=== PATIENT | female | born 1945 | race Caucasian/White ===

== ENCOUNTER 2023-04-07 09:07 | Inpatient (IN) | payer MEDICARE, OTHER ==
[2023-04-07] MEDS ORDERED: Sodium Chloride 0.9% 10 ML Syringe FLUSH PRN (09:12)
[2023-04-07 09:24] LABS: BASOPHILS PERCENT AUTO 0.5 % (0.2-1.2); EOSINOPHILS PERCENT AUTO 0.5 % (0.0-4.0); HEMATOCRIT 41.5 % (33.0-47.0); HEMOGLOBIN 14.2 g/dL (12.0-16.0); IMMATURE GRAN ABSOLUTE AUTO 0.02 x10^3/uL (0.00-0.07); LYMPHOCYTES ABSOLUTE AUTO 1.3 x10^3/uL (1.0-4.8); LYMPHOCYTES PERCENT AUTO 15.1 % (25.0-50.0); MEAN CORPUSCULAR HEMOGLOBIN 30.2 pg (26.0-32.0); MEAN CORPUSCULAR HGB CONC 34.2 g/dL (32.0-36.0); MEAN CORPUSCULAR VOLUME 88.3 fL (78.0-93.0); MONOCYTES ABSOLUTE AUTO 0.6 x10^3/uL (0.0-0.8); MONOCYTES PERCENT AUTO 6.8 % (2.0-11.0); NEUTROPHILS ABSOLUTE AUTO 6.6 x10^3/uL (1.8-7.7); NEUTROPHILS PERCENT AUTO 76.9 % (50.0-80.0); PLATELET COUNT,PLT 270 x10^3/uL (130-400); WHITE BLOOD CELL COUNT,WBC 8.5 x10^3/uL (4.0-10.0)
[2023-04-07 09:38] LABS: PROTHROMBIN TIME 10.7 SEC (9.5-12.2); PTT,PARTIAL THROMBOPLSTIN TIME 24.5 SEC (23.6-33.6)
[2023-04-07 09:43] LABS: A/G RATIO 1.48; ALANINE AMINOTRANSFERASE,ALT 29 U/L (14-59); ALKALINE PHOSPHATASE 85 U/L (46-116); ASPARTATE AMNIOTRANSFERASE,AST 16 U/L (15-37); BILIRUBIN TOTAL 0.3 mg/dL (0.2-1.0); BLOOD UREA NITROGEN,BUN 14 mg/dL (7-18); CALCIUM 8.9 mg/dL (8.5-10.1); CARBON DIOXIDE,CO2 23 mmol/L (21-32); CHLORIDE,CL 104 mmol/L (98-107); CREATININE 0.9 mg/dL (0.55-1.02); GLUCOSE RANDOM 119 mg/dL (70-99); PROTEIN TOTAL,TP 6.7 g/dL (6.4-8.2); SODIUM,NA 139 mmol/L (136-145)
[2023-04-07 09:44] LABS: ESTIMATED GFR 67 mL/min (>=60)
[2023-04-07] MEDS ORDERED: Iopamidol 755 Mg/ML 100 ML Bottle IVPUSH ONE (10:36)
[2023-04-07] MEDS ORDERED: Morphine 2 MG/ML SYRINGE IVPUSH ONE (11:33)
[2023-04-07] MEDS ORDERED: Ondansetron 4 MG Tab.DIS PO PRN (12:51)
[2023-04-07] MEDS ORDERED: Acetaminophen 325 MG Tab PO PRN (12:51)
[2023-04-07] MEDS ORDERED: DEXAMETHASONE 0.5 MG/5 ML PO SCH (13:00)
[2023-04-07] MEDS ORDERED: Zolpidem 5 MG Tab PO PRN (13:21)
[2023-04-07] MEDS ORDERED: Morphine 2 MG/ML SYRINGE IVPUSH PRN (13:27)
[2023-04-07] MEDS ORDERED: Gadoteridol 279.3 MG/ML 20 ML SDV ONE (14:20)
[2023-04-07] MEDS: oxyCODONE 5 MG Tab PO PRN (17:30)
[2023-04-07] MEDS: Sodium Chloride 0.9% 1,000 ML IV SCH (17:45)
[2023-04-07] MEDS: Docusate Sodium 100 MG Cap PO SCH (21:10)
[2023-04-07] MEDS: Aspirin 325 MG Tab.EC PO SCH (21:10)
[2023-04-07] MEDS: atorvaSTATin 40 MG Tab PO SCH (21:29)
[2023-04-07] MEDS: Famotidine 20 MG Tab PO SCH (21:31)
[2023-04-08] MEDS: Sodium Chloride 0.9% 1,000 ML IV SCH ×2 (03:45→16:32)
[2023-04-08] MEDS: oxyCODONE 5 MG Tab PO PRN ×4 (05:00→21:20)
[2023-04-08] MEDS: Pantoprazole 40 MG Tab.CR PO SCH (06:39)
[2023-04-08 06:51] LABS: HEMATOCRIT 38.5 % (33.0-47.0); HEMOGLOBIN 13.1 g/dL (12.0-16.0); MEAN CORPUSCULAR HEMOGLOBIN 30.5 pg (26.0-32.0); MEAN CORPUSCULAR VOLUME 89.5 fL (78.0-93.0); RED BLOOD CELL COUNT 4.3 x10^6/uL (4.00-5.50); WHITE BLOOD CELL COUNT,WBC 7.5 x10^3/uL (4.0-10.0)
[2023-04-08 07:19] LABS: A/G RATIO 1.33; ALBUMIN 3.2 g/dL (3.4-5.0); ANION GAP 11.8 mmol/L (5-15); BILIRUBIN TOTAL 0.5 mg/dL (0.2-1.0); CALCIUM 8.2 mg/dL (8.5-10.1); CREATININE 0.7 mg/dL (0.55-1.02); EST CRCL DRUG DOSING (CG) 62.48 mL/min; POTASSIUM,K 3.8 mmol/L (3.5-5.1); PROTEIN TOTAL,TP 5.6 g/dL (6.4-8.2)
[2023-04-08] MEDS: buPROPion 150 MG Tab.ER PO SCH (09:28)
[2023-04-08] MEDS: Cyanocobalamin (Vitamin B12) 1,000 MCG Tab PO SCH (09:29)
[2023-04-08] MEDS: Docusate Sodium 100 MG Cap PO SCH ×2 (09:29→20:42)
[2023-04-08] MEDS: amLODIPine 5 MG Tab PO SCH (09:33)
[2023-04-08] MEDS: Famotidine 20 MG Tab PO SCH ×2 (09:35→20:44)
[2023-04-08] MEDS: Enoxaparin 40 MG/0.4 ML Syringe SUBCUT SCH (14:50)
[2023-04-08] MEDS: atorvaSTATin 40 MG Tab PO SCH (20:43)
[2023-04-08] MEDS: Aspirin 325 MG Tab.EC PO SCH (20:44)
[2023-04-09] MEDS: Sodium Chloride 0.9% 1,000 ML IV SCH (01:40)
[2023-04-09] MEDS: oxyCODONE 5 MG Tab PO PRN ×3 (03:22→22:07)
[2023-04-09] MEDS: Pantoprazole 40 MG Tab.CR PO SCH (06:08)
[2023-04-09] MEDS: Docusate Sodium 100 MG Cap PO SCH ×2 (09:42→20:13)
[2023-04-09] MEDS: Cyanocobalamin (Vitamin B12) 1,000 MCG Tab PO SCH (09:42)
[2023-04-09] MEDS: buPROPion 150 MG Tab.ER PO SCH (09:42)
[2023-04-09] MEDS: amLODIPine 5 MG Tab PO SCH (09:43)
[2023-04-09] MEDS: Famotidine 20 MG Tab PO SCH ×2 (09:43→20:13)
[2023-04-09] MEDS: Enoxaparin 40 MG/0.4 ML Syringe SUBCUT SCH (12:35)
[2023-04-09] MEDS: atorvaSTATin 40 MG Tab PO SCH (20:13)
[2023-04-09] MEDS: Aspirin 325 MG Tab.EC PO SCH (20:13)
[2023-04-10] MEDS: oxyCODONE 5 MG Tab PO PRN (03:07)
[2023-04-10] MEDS: Pantoprazole 40 MG Tab.CR PO SCH (06:07)
[2023-04-10] MEDS: buPROPion 150 MG Tab.ER PO SCH (09:44)
[2023-04-10] MEDS: Famotidine 20 MG Tab PO SCH (09:44)
[2023-04-10] MEDS: amLODIPine 5 MG Tab PO SCH (09:44)
[2023-04-10] MEDS: Cyanocobalamin (Vitamin B12) 1,000 MCG Tab PO SCH (09:44)
[2023-04-10] MEDS: Docusate Sodium 100 MG Cap PO SCH (09:44)
[2023-04-15] MEDS ORDERED: Alendronate 70 MG Tab PO SCH (06:00)
== END 2023-04-10 11:48 | disposition swing bed (61) | DRG 65 ==
LOC: VM.ED 09:07 → VM.MS 11:48
PROVIDERS: ADMIT Family Medicine; ATTEND Family Medicine
DX: I63.319 Cerebral infarction due to thrombosis of unspecified middle cerebral artery (principal); G81.94 Hemiplegia, unspecified affecting left nondominant side; R47.1 Dysarthria and anarthria; R29.715 NIHSS score 15; F32.9 Major depressive disorder, single episode, unspecified; M81.0 Age-related osteoporosis without current pathological fracture; R29.810 Facial weakness; Z66 Do not resuscitate; R47.81 Slurred speech; I10 Essential (primary) hypertension; E78.5 Hyperlipidemia, unspecified; E78.00 Pure hypercholesterolemia, unspecified; K21.9 Gastro-esophageal reflux disease without esophagitis; Z79.899 Other long term (current) drug therapy
CPT/HCPCS: 36415; 70450; 70496; 80053; 84484; 85025; 85610; 85730; 93005; 93010; 96374; 99284; 99285; J2270; Q9967; 70548; 70553; 82947; 85027; 92526-GN; 92610-GN; 93971-50; 97110-GP; 97162-GP; 97166-GO; 97530-GP; 97535-GO; A9270-GY; A9579; J1650; J3490; J7030; J8540

== ENCOUNTER 2023-04-10 09:35 | Inpatient (IN) | payer MEDICARE, OTHER ==
[2023-04-10] MEDS ORDERED: Ondansetron 4 MG Tab.DIS PO PRN (11:11)
[2023-04-10] MEDS: Enoxaparin 40 MG/0.4 ML Syringe SUBCUT SCH (13:28)
[2023-04-10] MEDS: atorvaSTATin 40 MG Tab PO SCH (20:18)
[2023-04-10] MEDS: oxyCODONE 5 MG Tab PO PRN (20:19)
[2023-04-10] MEDS: Docusate Sodium 100 MG Cap PO SCH (20:19)
[2023-04-10] MEDS: Aspirin 325 MG Tab.EC PO SCH (20:19)
[2023-04-10] MEDS: Acetaminophen 325 MG Tab PO PRN (23:45)
[2023-04-11] MEDS: oxyCODONE 5 MG Tab PO PRN (04:01)
[2023-04-11] MEDS ORDERED: Pantoprazole 40 MG Tab.CR PO PRN (07:00)
[2023-04-11 07:16] LABS: HEMATOCRIT 40.6 % (33.0-47.0); HEMOGLOBIN 14.1 g/dL (12.0-16.0); MEAN CORPUSCULAR HEMOGLOBIN 30.4 pg (26.0-32.0); MEAN CORPUSCULAR HGB CONC 34.7 g/dL (32.0-36.0); MEAN CORPUSCULAR VOLUME 87.5 fL (78.0-93.0); RED BLOOD CELL COUNT 4.64 x10^6/uL (4.00-5.50); WHITE BLOOD CELL COUNT,WBC 8.7 x10^3/uL (4.0-10.0)
[2023-04-11] MEDS: Acetaminophen 325 MG Tab PO PRN ×2 (07:41→20:14)
[2023-04-11] MEDS: buPROPion 150 MG Tab.ER PO SCH (09:26)
[2023-04-11] MEDS: Docusate Sodium 100 MG Cap PO SCH ×2 (09:27→20:14)
[2023-04-11] MEDS: Cyanocobalamin (Vitamin B12) 1,000 MCG Tab PO SCH (09:27)
[2023-04-11] MEDS: amLODIPine 5 MG Tab PO SCH (09:28)
[2023-04-11] MEDS: Enoxaparin 40 MG/0.4 ML Syringe SUBCUT SCH (12:01)
[2023-04-11] MEDS: atorvaSTATin 40 MG Tab PO SCH (20:14)
[2023-04-11] MEDS: Aspirin 325 MG Tab.EC PO SCH (20:14)
[2023-04-11] MEDS: Zolpidem 5 MG Tab PO PRN (22:44)
[2023-04-12] MEDS: oxyCODONE 5 MG Tab PO PRN (01:55)
[2023-04-12] MEDS: Cyanocobalamin (Vitamin B12) 1,000 MCG Tab PO SCH (09:18)
[2023-04-12] MEDS: Docusate Sodium 100 MG Cap PO SCH ×2 (09:18→21:17)
[2023-04-12] MEDS: Acetaminophen 325 MG Tab PO PRN ×2 (09:18→21:18)
[2023-04-12] MEDS: buPROPion 150 MG Tab.ER PO SCH (09:18)
[2023-04-12] MEDS: amLODIPine 5 MG Tab PO SCH (09:19)
[2023-04-12] MEDS: Enoxaparin 40 MG/0.4 ML Syringe SUBCUT SCH (14:33)
[2023-04-12] MEDS: Aspirin 325 MG Tab.EC PO SCH (21:17)
[2023-04-12] MEDS: atorvaSTATin 40 MG Tab PO SCH (21:18)
[2023-04-12] MEDS: Zolpidem 5 MG Tab PO PRN (22:17)
[2023-04-13] MEDS: oxyCODONE 5 MG Tab PO PRN ×3 (06:45→22:41)
[2023-04-13] MEDS: Cyanocobalamin (Vitamin B12) 1,000 MCG Tab PO SCH (09:38)
[2023-04-13] MEDS: Docusate Sodium 100 MG Cap PO SCH ×2 (09:38→21:10)
[2023-04-13] MEDS: amLODIPine 5 MG Tab PO SCH (09:38)
[2023-04-13] MEDS: buPROPion 150 MG Tab.ER PO SCH (09:39)
[2023-04-13] MEDS: Enoxaparin 40 MG/0.4 ML Syringe SUBCUT SCH (13:27)
[2023-04-13] MEDS: Acetaminophen 325 MG Tab PO PRN ×2 (14:23→21:12)
[2023-04-13] MEDS: atorvaSTATin 40 MG Tab PO SCH (21:10)
[2023-04-13] MEDS: Aspirin 325 MG Tab.EC PO SCH (21:10)
[2023-04-14] MEDS: Alendronate 70 MG Tab PO SCH (06:14)
[2023-04-14 08:14] LABS: HEMATOCRIT 41.4 % (33.0-47.0); HEMOGLOBIN 14.3 g/dL (12.0-16.0); MEAN CORPUSCULAR HEMOGLOBIN 30.4 pg (26.0-32.0); MEAN CORPUSCULAR HGB CONC 34.5 g/dL (32.0-36.0); MEAN CORPUSCULAR VOLUME 88.1 fL (78.0-93.0); RED BLOOD CELL COUNT 4.7 x10^6/uL (4.00-5.50); WHITE BLOOD CELL COUNT,WBC 6.1 x10^3/uL (4.0-10.0)
[2023-04-14] MEDS: Docusate Sodium 100 MG Cap PO SCH ×2 (09:32→20:15)
[2023-04-14] MEDS: amLODIPine 5 MG Tab PO SCH (09:32)
[2023-04-14] MEDS: Cyanocobalamin (Vitamin B12) 1,000 MCG Tab PO SCH (09:33)
[2023-04-14] MEDS: buPROPion 150 MG Tab.ER PO SCH (09:33)
[2023-04-14] MEDS: Enoxaparin 40 MG/0.4 ML Syringe SUBCUT SCH (12:49)
[2023-04-14] MEDS: Acetaminophen 325 MG Tab PO PRN (16:03)
[2023-04-14] MEDS: Aspirin 325 MG Tab.EC PO SCH (20:14)
[2023-04-14] MEDS: atorvaSTATin 40 MG Tab PO SCH (20:14)
[2023-04-14] MEDS: oxyCODONE 5 MG Tab PO PRN (20:20)
[2023-04-15] MEDS: Acetaminophen 325 MG Tab PO PRN ×3 (02:43→21:49)
[2023-04-15] MEDS: Cyanocobalamin (Vitamin B12) 1,000 MCG Tab PO SCH (09:51)
[2023-04-15] MEDS: Docusate Sodium 100 MG Cap PO SCH ×2 (09:51→21:47)
[2023-04-15] MEDS: buPROPion 150 MG Tab.ER PO SCH (09:51)
[2023-04-15] MEDS: amLODIPine 5 MG Tab PO SCH (09:52)
[2023-04-15] MEDS: Enoxaparin 40 MG/0.4 ML Syringe SUBCUT SCH (14:23)
[2023-04-15] MEDS: Aspirin 325 MG Tab.EC PO SCH (21:47)
[2023-04-15] MEDS: atorvaSTATin 40 MG Tab PO SCH (21:47)
[2023-04-15] MEDS: Zolpidem 5 MG Tab PO PRN (23:38)
[2023-04-16] MEDS: Docusate Sodium 100 MG Cap PO SCH ×2 (09:56→20:30)
[2023-04-16] MEDS: amLODIPine 5 MG Tab PO SCH (09:56)
[2023-04-16] MEDS: buPROPion 150 MG Tab.ER PO SCH (09:56)
[2023-04-16] MEDS: Cyanocobalamin (Vitamin B12) 1,000 MCG Tab PO SCH (09:56)
[2023-04-16] MEDS: Enoxaparin 40 MG/0.4 ML Syringe SUBCUT SCH (12:55)
[2023-04-16] MEDS: atorvaSTATin 40 MG Tab PO SCH (20:29)
[2023-04-16] MEDS: oxyCODONE 5 MG Tab PO PRN (20:30)
[2023-04-16] MEDS: Aspirin 325 MG Tab.EC PO SCH (20:30)
[2023-04-17 07:22] LABS: HEMATOCRIT 40.5 % (33.0-47.0); HEMOGLOBIN 13.7 g/dL (12.0-16.0); MEAN CORPUSCULAR HEMOGLOBIN 30.1 pg (26.0-32.0); MEAN CORPUSCULAR HGB CONC 33.8 g/dL (32.0-36.0); RED BLOOD CELL COUNT 4.55 x10^6/uL (4.00-5.50); WHITE BLOOD CELL COUNT,WBC 7.1 x10^3/uL (4.0-10.0)
[2023-04-17 07:43] LABS: A/G RATIO 1.44; ALBUMIN 3.6 g/dL (3.4-5.0); ANION GAP 10.9 mmol/L (5-15); BILIRUBIN TOTAL 0.4 mg/dL (0.2-1.0); CALCIUM 8.8 mg/dL (8.5-10.1); CREATININE 0.9 mg/dL (0.55-1.02); EST CRCL DRUG DOSING (CG) 47.85 mL/min; POTASSIUM,K 3.9 mmol/L (3.5-5.1); PROTEIN TOTAL,TP 6.1 g/dL (6.4-8.2)
[2023-04-17] MEDS: amLODIPine 5 MG Tab PO SCH (08:21)
[2023-04-17] MEDS: Cyanocobalamin (Vitamin B12) 1,000 MCG Tab PO SCH (08:21)
[2023-04-17] MEDS: Docusate Sodium 100 MG Cap PO SCH ×2 (08:21→20:46)
[2023-04-17] MEDS: buPROPion 150 MG Tab.ER PO SCH (08:21)
[2023-04-17] MEDS: Enoxaparin 40 MG/0.4 ML Syringe SUBCUT SCH (11:28)
[2023-04-17] MEDS: Aspirin 325 MG Tab.EC PO SCH (20:46)
[2023-04-17] MEDS: atorvaSTATin 40 MG Tab PO SCH (20:46)
[2023-04-17] MEDS: Acetaminophen 325 MG Tab PO PRN (20:47)
[2023-04-17] MEDS: Zolpidem 5 MG Tab PO PRN (23:13)
[2023-04-18] MEDS: Cyanocobalamin (Vitamin B12) 1,000 MCG Tab PO SCH (09:30)
[2023-04-18] MEDS: buPROPion 150 MG Tab.ER PO SCH (09:31)
[2023-04-18] MEDS: amLODIPine 5 MG Tab PO SCH (09:31)
[2023-04-18] MEDS: Docusate Sodium 100 MG Cap PO SCH ×2 (09:31→20:00)
[2023-04-18] MEDS: Enoxaparin 40 MG/0.4 ML Syringe SUBCUT SCH (12:32)
[2023-04-18] MEDS: Acetaminophen 325 MG Tab PO PRN (17:21)
[2023-04-18] MEDS: Aspirin 325 MG Tab.EC PO SCH (20:00)
[2023-04-18] MEDS: atorvaSTATin 40 MG Tab PO SCH (20:00)
[2023-04-18] MEDS: Zolpidem 5 MG Tab PO PRN (20:01)
[2023-04-18] MEDS: Famotidine 20 MG Tab PO PRN (20:47)
[2023-04-19] MEDS: Acetaminophen 325 MG Tab PO PRN ×2 (01:47→19:26)
[2023-04-19] MEDS: amLODIPine 5 MG Tab PO SCH (08:09)
[2023-04-19] MEDS: Cyanocobalamin (Vitamin B12) 1,000 MCG Tab PO SCH (08:09)
[2023-04-19] MEDS: Docusate Sodium 100 MG Cap PO SCH ×2 (08:09→21:11)
[2023-04-19] MEDS: buPROPion 150 MG Tab.ER PO SCH (08:10)
[2023-04-19] MEDS: Enoxaparin 40 MG/0.4 ML Syringe SUBCUT SCH (12:09)
[2023-04-19] MEDS: Aspirin 325 MG Tab.EC PO SCH (21:11)
[2023-04-19] MEDS: atorvaSTATin 40 MG Tab PO SCH (21:11)
[2023-04-19] MEDS: Famotidine 20 MG Tab PO PRN (21:11)
[2023-04-19] MEDS: Zolpidem 5 MG Tab PO PRN (21:12)
[2023-04-20 08:03] LABS: HEMATOCRIT 41.7 % (33.0-47.0); HEMOGLOBIN 14.1 g/dL (12.0-16.0); MEAN CORPUSCULAR HEMOGLOBIN 30.3 pg (26.0-32.0); MEAN CORPUSCULAR HGB CONC 33.8 g/dL (32.0-36.0); MEAN CORPUSCULAR VOLUME 89.5 fL (78.0-93.0); RED BLOOD CELL COUNT 4.66 x10^6/uL (4.00-5.50); WHITE BLOOD CELL COUNT,WBC 7.2 x10^3/uL (4.0-10.0)
[2023-04-20] MEDS: amLODIPine 5 MG Tab PO SCH (10:46)
[2023-04-20] MEDS: buPROPion 150 MG Tab.ER PO SCH (10:47)
[2023-04-20] MEDS: Cyanocobalamin (Vitamin B12) 1,000 MCG Tab PO SCH (10:47)
[2023-04-20] MEDS: Docusate Sodium 100 MG Cap PO SCH ×2 (10:47→20:31)
[2023-04-20] MEDS: Enoxaparin 40 MG/0.4 ML Syringe SUBCUT SCH (13:08)
[2023-04-20] MEDS: Famotidine 20 MG Tab PO PRN (20:31)
[2023-04-20] MEDS: Aspirin 325 MG Tab.EC PO SCH (20:31)
[2023-04-20] MEDS: atorvaSTATin 40 MG Tab PO SCH (20:31)
[2023-04-20] MEDS: Zolpidem 5 MG Tab PO PRN (20:32)
[2023-04-20] MEDS: Acetaminophen 325 MG Tab PO PRN (20:32)
[2023-04-21] MEDS: Alendronate 70 MG Tab PO SCH (05:08)
[2023-04-21] MEDS: Cyanocobalamin (Vitamin B12) 1,000 MCG Tab PO SCH (09:21)
[2023-04-21] MEDS: Docusate Sodium 100 MG Cap PO SCH ×2 (09:27→20:28)
[2023-04-21] MEDS: amLODIPine 5 MG Tab PO SCH (09:27)
[2023-04-21] MEDS: buPROPion 150 MG Tab.ER PO SCH (09:27)
[2023-04-21] MEDS: Enoxaparin 40 MG/0.4 ML Syringe SUBCUT SCH (12:38)
[2023-04-21] MEDS: Aspirin 325 MG Tab.EC PO SCH (20:28)
[2023-04-21] MEDS: atorvaSTATin 40 MG Tab PO SCH (20:28)
[2023-04-21] MEDS: Acetaminophen 325 MG Tab PO PRN (20:28)
[2023-04-21] MEDS: Zolpidem 5 MG Tab PO PRN (20:29)
[2023-04-22] MEDS: Acetaminophen 325 MG Tab PO PRN ×2 (00:23→20:04)
[2023-04-22] MEDS: Docusate Sodium 100 MG Cap PO SCH ×2 (09:35→20:04)
[2023-04-22] MEDS: buPROPion 150 MG Tab.ER PO SCH (09:35)
[2023-04-22] MEDS: Cyanocobalamin (Vitamin B12) 1,000 MCG Tab PO SCH (09:36)
[2023-04-22] MEDS: amLODIPine 5 MG Tab PO SCH (09:36)
[2023-04-22] MEDS: Enoxaparin 40 MG/0.4 ML Syringe SUBCUT SCH (12:55)
[2023-04-22] MEDS: atorvaSTATin 40 MG Tab PO SCH (20:03)
[2023-04-22] MEDS: Aspirin 325 MG Tab.EC PO SCH (20:03)
[2023-04-22] MEDS: Zolpidem 5 MG Tab PO PRN (20:03)
[2023-04-23] MEDS: Acetaminophen 325 MG Tab PO PRN (02:14)
[2023-04-23 06:57] LABS: HEMATOCRIT 38.8 % (33.0-47.0); MEAN CORPUSCULAR HEMOGLOBIN 30.4 pg (26.0-32.0); MEAN CORPUSCULAR HGB CONC 33.5 g/dL (32.0-36.0); MEAN CORPUSCULAR VOLUME 90.7 fL (78.0-93.0); RED BLOOD CELL COUNT 4.28 x10^6/uL (4.00-5.50)
[2023-04-23 07:16] LABS: A/G RATIO 1.42; ALBUMIN 3.4 g/dL (3.4-5.0); ANION GAP 11.8 mmol/L (5-15); BILIRUBIN TOTAL 0.3 mg/dL (0.2-1.0); CALCIUM 8.6 mg/dL (8.5-10.1); CREATININE 0.9 mg/dL (0.55-1.02); EST CRCL DRUG DOSING (CG) 47.85 mL/min; POTASSIUM,K 3.8 mmol/L (3.5-5.1); PROTEIN TOTAL,TP 5.8 g/dL (6.4-8.2)
[2023-04-23] MEDS: Docusate Sodium 100 MG Cap PO SCH ×2 (09:26→20:34)
[2023-04-23] MEDS: buPROPion 150 MG Tab.ER PO SCH (09:26)
[2023-04-23] MEDS: amLODIPine 5 MG Tab PO SCH (09:26)
[2023-04-23] MEDS: Enoxaparin 40 MG/0.4 ML Syringe SUBCUT SCH (12:22)
[2023-04-23] MEDS: oxyCODONE 5 MG Tab PO PRN (20:32)
[2023-04-23] MEDS: Melatonin 3 MG Tab PO SCH (20:34)
[2023-04-23] MEDS: Aspirin 325 MG Tab.EC PO SCH (20:34)
[2023-04-23] MEDS: atorvaSTATin 40 MG Tab PO SCH (20:34)
[2023-04-23] MEDS: Famotidine 20 MG Tab PO PRN (20:40)
[2023-04-24] MEDS: buPROPion 150 MG Tab.ER PO SCH (07:59)
[2023-04-24] MEDS: amLODIPine 5 MG Tab PO SCH (07:59)
[2023-04-24] MEDS: Docusate Sodium 100 MG Cap PO SCH ×2 (07:59→20:05)
[2023-04-24] MEDS: Enoxaparin 40 MG/0.4 ML Syringe SUBCUT SCH (12:58)
[2023-04-24] MEDS: Famotidine 20 MG Tab PO PRN (18:43)
[2023-04-24] MEDS: Acetaminophen 325 MG Tab PO PRN (20:03)
[2023-04-24] MEDS: atorvaSTATin 40 MG Tab PO SCH (20:04)
[2023-04-24] MEDS: Melatonin 3 MG Tab PO SCH (20:04)
[2023-04-24] MEDS: Aspirin 325 MG Tab.EC PO SCH (20:05)
[2023-04-25] MEDS: buPROPion 150 MG Tab.ER PO SCH (09:05)
[2023-04-25] MEDS: amLODIPine 5 MG Tab PO SCH (09:05)
[2023-04-25] MEDS: Docusate Sodium 100 MG Cap PO SCH ×2 (09:08→20:26)
[2023-04-25] MEDS: Enoxaparin 40 MG/0.4 ML Syringe SUBCUT SCH (12:58)
[2023-04-25] MEDS: Acetaminophen 325 MG Tab PO PRN (20:23)
[2023-04-25] MEDS: atorvaSTATin 40 MG Tab PO SCH (20:24)
[2023-04-25] MEDS: Aspirin 325 MG Tab.EC PO SCH (20:25)
[2023-04-25] MEDS: Melatonin 3 MG Tab PO SCH (20:25)
[2023-04-26] MEDS: Zolpidem 5 MG Tab PO PRN ×2 (00:10→21:54)
[2023-04-26 07:13] LABS: HEMATOCRIT 37.4 % (33.0-47.0); MEAN CORPUSCULAR HEMOGLOBIN 30.7 pg (26.0-32.0); MEAN CORPUSCULAR HGB CONC 34.8 g/dL (32.0-36.0); MEAN CORPUSCULAR VOLUME 88.4 fL (78.0-93.0); RED BLOOD CELL COUNT 4.23 x10^6/uL (4.00-5.50); WHITE BLOOD CELL COUNT,WBC 5.5 x10^3/uL (4.0-10.0)
[2023-04-26] MEDS: amLODIPine 5 MG Tab PO SCH (08:27)
[2023-04-26] MEDS: buPROPion 150 MG Tab.ER PO SCH (08:28)
[2023-04-26] MEDS: Docusate Sodium 100 MG Cap PO SCH ×2 (08:28→22:00)
[2023-04-26] MEDS: Enoxaparin 40 MG/0.4 ML Syringe SUBCUT SCH (13:09)
[2023-04-26] MEDS: atorvaSTATin 40 MG Tab PO SCH (20:00)
[2023-04-26] MEDS: Aspirin 325 MG Tab.EC PO SCH (20:00)
[2023-04-26] MEDS: Melatonin 3 MG Tab PO SCH (20:00)
[2023-04-26] MEDS: Acetaminophen 325 MG Tab PO PRN (20:01)
[2023-04-27] MEDS: amLODIPine 5 MG Tab PO SCH (09:53)
[2023-04-27] MEDS: buPROPion 150 MG Tab.ER PO SCH (09:54)
[2023-04-27] MEDS: Docusate Sodium 100 MG Cap PO SCH ×2 (09:54→20:27)
[2023-04-27] MEDS: Enoxaparin 40 MG/0.4 ML Syringe SUBCUT SCH (12:40)
[2023-04-27] MEDS: Aspirin 325 MG Tab.EC PO SCH (20:26)
[2023-04-27] MEDS: atorvaSTATin 40 MG Tab PO SCH (20:26)
[2023-04-27] MEDS: Melatonin 3 MG Tab PO SCH (20:26)
[2023-04-27] MEDS: Acetaminophen 325 MG Tab PO PRN (20:31)
[2023-04-28] MEDS: Alendronate 70 MG Tab PO SCH (06:32)
[2023-04-28] MEDS: amLODIPine 5 MG Tab PO SCH (09:19)
[2023-04-28] MEDS: buPROPion 150 MG Tab.ER PO SCH (09:19)
[2023-04-28] MEDS: Docusate Sodium 100 MG Cap PO SCH ×2 (10:30→20:07)
[2023-04-28] MEDS: Acetaminophen 325 MG Tab PO PRN ×2 (12:06→20:07)
[2023-04-28] MEDS: Enoxaparin 40 MG/0.4 ML Syringe SUBCUT SCH (12:07)
[2023-04-28] MEDS: Melatonin 3 MG Tab PO SCH (20:08)
[2023-04-28] MEDS: atorvaSTATin 40 MG Tab PO SCH (20:08)
[2023-04-28] MEDS: Aspirin 325 MG Tab.EC PO SCH (20:08)
[2023-04-29] MEDS: Acetaminophen 325 MG Tab PO PRN (05:04)
== END 2023-04-29 06:35 | DRG 65 ==
LOC: VM.MS 12:02
PROVIDERS: ADMIT Family Medicine; ATTEND Family Medicine
DX: I63.9 Cerebral infarction, unspecified (principal); G81.94 Hemiplegia, unspecified affecting left nondominant side; R47.1 Dysarthria and anarthria; R13.10 Dysphagia, unspecified; I10 Essential (primary) hypertension; M81.0 Age-related osteoporosis without current pathological fracture; R47.81 Slurred speech; F32.9 Major depressive disorder, single episode, unspecified; E78.5 Hyperlipidemia, unspecified; K21.9 Gastro-esophageal reflux disease without esophagitis; Z79.899 Other long term (current) drug therapy
CPT/HCPCS: 36415; 74230; 80053; 85027; 92526-GN; 92610-GN; 92611-GN; 95851-GO; 97110-GP; 97112-GP; 97116-GP; 97530-GP; 97535-GO; A9270-GY; J1650; J8540

== ENCOUNTER 2023-08-22 08:56 | Emergency (ER) | payer MEDICARE, OTHER ==
[2023-08-22] MEDS: Sodium Chloride 0.9% 1,000 ML IV ONE (09:05)
[2023-08-22 09:30] LABS: BASOPHILS PERCENT AUTO 0.1 % (0.2-1.2); EOSINOPHILS ABSOLUTE AUTO 0.1 x10^3/uL (0.0-0.5); EOSINOPHILS PERCENT AUTO 0.3 % (0.0-4.0); HEMATOCRIT 41.9 % (33.0-47.0); IMMATURE GRAN ABSOLUTE AUTO 0.05 x10^3/uL (0.00-0.07); LYMPHOCYTES ABSOLUTE AUTO 1.2 x10^3/uL (1.0-4.8); LYMPHOCYTES PERCENT AUTO 6.1 % (25.0-50.0); MEAN CORPUSCULAR HEMOGLOBIN 31.3 pg (26.0-32.0); MEAN CORPUSCULAR HGB CONC 33.4 g/dL (32.0-36.0); MEAN CORPUSCULAR VOLUME 93.7 fL (78.0-93.0); MONOCYTES ABSOLUTE AUTO 1.1 x10^3/uL (0.0-0.8); MONOCYTES PERCENT AUTO 5.9 % (2.0-11.0); NEUTROPHILS ABSOLUTE AUTO 16.5 x10^3/uL (1.8-7.7); NEUTROPHILS PERCENT AUTO 87.3 % (50.0-80.0); RED BLOOD CELL COUNT 4.47 x10^6/uL (4.00-5.50); WHITE BLOOD CELL COUNT,WBC 18.9 x10^3/uL (4.0-10.0)
[2023-08-22 09:41] LABS: PLATELET COUNT,PLT 237 x10^3/uL (130-400); PROTHROMBIN TIME 10.8 SEC (9.5-12.2)
[2023-08-22] MEDS: Ibuprofen 200 MG Tab PO STA (09:59)
[2023-08-22 10:00] LABS: ALANINE AMINOTRANSFERASE,ALT 44 U/L (14-59); ALBUMIN 3.5 g/dL (3.4-5.0); ALKALINE PHOSPHATASE 192 U/L (46-116); ASPARTATE AMNIOTRANSFERASE,AST 33 U/L (15-37); BILIRUBIN TOTAL 0.8 mg/dL (0.2-1.0); BLOOD UREA NITROGEN,BUN 13 mg/dL (7-18); CARBON DIOXIDE,CO2 23 mmol/L (21-32); CHLORIDE,CL 103 mmol/L (98-107); GLUCOSE RANDOM 117 mg/dL (70-99); POTASSIUM,K 3.7 mmol/L (3.5-5.1); SODIUM,NA 138 mmol/L (136-145)
[2023-08-22 10:01] LABS: ANION GAP 15.7 mmol/L (5-15); ESTIMATED GFR 58 mL/min (>=60)
== END 2023-08-22 10:51 | disposition home or self-care (01) ==
LOC: VM.ED 08:56
DX: I95.1 Orthostatic hypotension (principal); R55 Syncope and collapse; E78.00 Pure hypercholesterolemia, unspecified; I10 Essential (primary) hypertension; K21.9 Gastro-esophageal reflux disease without esophagitis; Z79.84 Long term (current) use of oral hypoglycemic drugs; Z79.899 Other long term (current) drug therapy
CPT/HCPCS: 36415; 80053; 84484; 85025; 85610; 93010; 96360; 99284; A9270; J7030

== ENCOUNTER 2025-06-09 02:06 | Emergency (ER) | payer MEDICARE, OTHER ==
[2025-06-09 02:40] LABS: BASOPHILS ABSOLUTE AUTO 0.0 x10^3/uL (0.0-0.2); BASOPHILS PERCENT AUTO 0.6 % (0.2-1.2); EOSINOPHILS ABSOLUTE AUTO 0.1 x10^3/uL (0.0-0.5); EOSINOPHILS PERCENT AUTO 1.5 % (0.0-4.0); IMMATURE GRAN ABSOLUTE AUTO 0.02 x10^3/uL (0.00-0.07); IMMATURE GRAN PERCENT AUTO 0.30 % (0.00-0.43); LYMPHOCYTES ABSOLUTE AUTO 2.4 x10^3/uL (1.0-4.8); LYMPHOCYTES PERCENT AUTO 34.5 % (25.0-50.0); MONOCYTES ABSOLUTE AUTO 0.7 x10^3/uL (0.0-0.8); MONOCYTES PERCENT AUTO 10.1 % (2.0-11.0); NEUTROPHILS ABSOLUTE AUTO 3.6 x10^3/uL (1.8-7.7); NEUTROPHILS PERCENT AUTO 53.0 % (50.0-80.0); PLATELET COUNT,PLT 214 x10^3/uL (130-400); RED BLOOD CELL COUNT 4.26 x10^6/uL (4.00-5.50); WHITE BLOOD CELL COUNT,WBC 6.8 x10^3/uL (4.0-10.0)
[2025-06-09 02:55] LABS: A/G RATIO 1.48; ALANINE AMINOTRANSFERASE,ALT 42.0 U/L (14-59); ASPARTATE AMNIOTRANSFERASE,AST 34.0 U/L (15-37); BILIRUBIN TOTAL 0.5 mg/dL (0.2-1.0); BLOOD UREA NITROGEN,BUN 21.0 mg/dL (7-18); CARBON DIOXIDE,CO2 25.0 mmol/L (21-32); CHLORIDE,CL 103.0 mmol/L (98-107); CREATININE 1.1 mg/dL (0.55-1.02); EST CRCL DRUG DOSING (CG) 37.93 mL/min; GLUCOSE RANDOM 144.0 mg/dL (70-99); POTASSIUM,K 3.8 mmol/L (3.5-5.1); PROTEIN TOTAL,TP 6.2 g/dL (6.4-8.2); SODIUM,NA 139.0 mmol/L (136-145)
[2025-06-09 02:56] LABS: ESTIMATED GFR 51.0 mL/min (>=60)
== END 2025-06-09 03:20 | disposition home or self-care (01) ==
LOC: VM.ED 02:06 → SUPCPDRO 02:06 → VM.ED 03:20
DX: R42 Dizziness and giddiness (principal); M54.2 Cervicalgia; I10 Essential (primary) hypertension; K21.9 Gastro-esophageal reflux disease without esophagitis; E78.00 Pure hypercholesterolemia, unspecified; Z79.899 Other long term (current) drug therapy
CPT/HCPCS: 36415; 80053; 83735; 84484; 85025; 93005; 93010; 99284; 99285; A9270-GY

== ENCOUNTER 2025-06-10 14:24 | Emergency (ER) | payer MEDICARE, OTHER ==
[2025-06-10] MEDS ORDERED: Sodium Chloride 0.9% 10 ML Syringe FLUSH PRN (14:48)
[2025-06-10 15:03] LABS: BASOPHILS ABSOLUTE AUTO 0.0 x10^3/uL (0.0-0.2); BASOPHILS PERCENT AUTO 0.7 % (0.2-1.2); EOSINOPHILS ABSOLUTE AUTO 0.1 x10^3/uL (0.0-0.5); EOSINOPHILS PERCENT AUTO 1.4 % (0.0-4.0); IMMATURE GRAN ABSOLUTE AUTO 0.01 x10^3/uL (0.00-0.07); IMMATURE GRAN PERCENT AUTO 0.20 % (0.00-0.43); LYMPHOCYTES ABSOLUTE AUTO 1.8 x10^3/uL (1.0-4.8); LYMPHOCYTES PERCENT AUTO 30.1 % (25.0-50.0); MONOCYTES ABSOLUTE AUTO 0.6 x10^3/uL (0.0-0.8); MONOCYTES PERCENT AUTO 10.2 % (2.0-11.0); NEUTROPHILS ABSOLUTE AUTO 3.4 x10^3/uL (1.8-7.7); NEUTROPHILS PERCENT AUTO 57.4 % (50.0-80.0); PLATELET COUNT,PLT 224 x10^3/uL (130-400); RED BLOOD CELL COUNT 4.25 x10^6/uL (4.00-5.50); WHITE BLOOD CELL COUNT,WBC 5.9 x10^3/uL (4.0-10.0)
[2025-06-10 15:25] LABS: INR 1.0 (0.9-1.1); PTT,PARTIAL THROMBOPLSTIN TIME 24.1 SEC (23.5-33.2)
[2025-06-10 15:29] LABS: A/G RATIO 1.46; ALANINE AMINOTRANSFERASE,ALT 47 U/L (14-59); ASPARTATE AMNIOTRANSFERASE,AST 35 U/L (15-37); BILIRUBIN TOTAL 0.4 mg/dL (0.2-1.0); BLOOD UREA NITROGEN,BUN 18 mg/dL (7-18); CARBON DIOXIDE,CO2 27 mmol/L (21-32); CHLORIDE,CL 104 mmol/L (98-107); CREATININE 0.8 mg/dL (0.55-1.02); ESTIMATED GFR 75 mL/min (>=60); GLUCOSE RANDOM 112 mg/dL (70-99); POTASSIUM,K 4.2 mmol/L (3.5-5.1); PROTEIN TOTAL,TP 5.9 g/dL (6.4-8.2); SODIUM,NA 138 mmol/L (136-145)
[2025-06-10] MEDS: Iopamidol 755 Mg/ML 100 ML Bottle IVPUSH ONE (15:32)
[2025-06-10] MEDS: Aspirin 325 MG Tab.EC PO ONE (16:55)
== END 2025-06-10 17:35 | disposition short-term general hospital (02) ==
LOC: VM.ED 14:24
DX: I65.23 Occlusion and stenosis of bilateral carotid arteries (principal); R53.1 Weakness; I10 Essential (primary) hypertension; E78.00 Pure hypercholesterolemia, unspecified; Z79.82 Long term (current) use of aspirin; Z79.899 Other long term (current) drug therapy
CPT/HCPCS: 36415; 70496; 80053; 83735; 84484; 85025; 85610; 85730; 93005; 99285; A9270-GY; Q9967